=== PATIENT | female | born 1975 | race Caucasian/White ===

== ENCOUNTER 2018-10-30 13:18 | Outpatient (CLI) | payer OTHER ==
[~2018-10-30 13:18] MED LIST: COZAAR100 MG; HYZAAR 100-251 EACH PO
== END 2018-10-30 14:24 | disposition home or self-care (01) ==
LOC: LAB 13:18
DX: Z01.818 Encounter for other preprocedural examination (principal)

== ENCOUNTER 2018-10-31 07:31 | Day surgery (SDC) | payer OTHER | END 2018-10-31 16:55 | disposition home or self-care (01) | LOC: CIR.AMB 07:31 | DX: D12.8 Benign neoplasm of rectum (principal); D12.9 Benign neoplasm of anus and anal canal ==

== ENCOUNTER 2018-11-07 11:24 | Emergency (ER) | payer OTHER ==
[~2018-11-07] VITALS: Ht 165.1 cm; Wt 63.5 kg
== END 2018-11-07 18:45 | disposition home or self-care (01) ==
LOC: ER 11:24
DX: M79.662 Pain in left lower leg (principal)